=== PATIENT | female | born 1960 | race Caucasian/White ===

== ENCOUNTER 2021-05-16 10:23 | Emergency (ER) | payer BC ==
--- NOTE | 2021-05-16 12:47 | RAD REPORT ---
EXAM DESCRIPTION: RAD - Hand Left 2 View - 05/16/2021 12:41 pm CLINICAL HISTORY: SMASH INJURY COMPARISON: No comparisons FINDINGS: The bones are mildly demineralized. No acute fracture or dislocation evident.
--- NOTE | 2021-05-16 12:54 | ER ---
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 Patient denies pain to the hand at this time, but states it feels like it might be bruised. Coronavirus screen: At this time, the client does not indicate any symptoms associated with coronavirus-19. Ebola Screen: No symptoms or risks identified at this time. Initial Sepsis Screen: Does the patient meet any 2 criteria? No. Patient's initial sepsis screen is negative. Does the patient have a suspected source of infection? No. Patient's initial sepsis screen is negative. Risk Assessment: Do you want to hurt yourself or someone else? Patient reports no desire to harm self or others. Onset of symptoms was May 16, 2021. 11:17 Method Of Arrival: Ambulatory ap3 11:17 Acuity: JEFF 4 ap3 Triage Assessment: 11:20 General: Appears in no apparent distress. Behavior is calm, cooperative, appropriate ap3 for age. Pain: Complains of pain in left hand. 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 Cardiovascular: Patient's skin is warm and dry. Respiratory: Airway is patent Respiratory effort is even, unlabored, Respiratory pattern is regular, symmetrical. Musculoskeletal: Reports pain in left hand. Injury Description: Crush injury sustained to left hand is in file cabinet. Historical: - Allergies: 11:19 No Known Allergies; ap3 - Home Meds: 11:19 None [Active]; ap3 - PMHx: 11:19 polio; ap3 - Immunization history:: Client reports having NOT received the Covid vaccine. Last tetanus immunization: up to date Flu vaccine is not up to date. - Social history:: Smoking status: Patient denies any tobacco usage or history of. Screenin:21 Abuse screen: Denies threats or abuse. Nutritional screening: No deficits noted. ap3 Tuberculosis screening: No symptoms or risk factors identified. Fall Risk None identified. Assessment: 11:25 General: Appears in no apparent distress. comfortable, Behavior is calm, cooperative, jd3 appropriate for age. Pain: Complains of pain in left hand Quality of pain is described as aching. Neuro: Level of Consciousness is awake, alert, obeys commands, Oriented to person, place, time, situation. Cardiovascular: Capillary refill < 3 seconds Patient's skin is warm and dry. Respiratory: Airway is patent Respiratory effort is even, unlabored, Respiratory pattern is regular, symmetrical, Denies cough, shortness of breath. GI: No signs and/or symptoms were reported involving the gastrointestinal system. : No signs and/or symptoms were reported regarding the genitourinary system. EENT: No signs and/or symptoms were reported regarding the EENT system. Derm: Skin is intact, Skin is dry, Skin is normal, Skin temperature is warm Bruising that is dark purple, on dorsal aspect of proximal phalanx of left index finger. Musculoskeletal: Circulation, motion, and sensation intact. Range of motion: intact in all extremities. 12:08 Reassessment: Patient appears in no apparent distress at this time. Patient and/or jd3 family updated on plan of care and expected duration. Pain level reassessed. Patient is alert, oriented x 3, equal unlabored respirations, skin warm/dry/pink. X-rays done. awaiting results. 13:00 Reassessment: Patient appears in no apparent distress at this time. Patient and/or jd3 family updated on plan of care and expected duration. Pain level reassessed. Patient is alert, oriented x 3, equal unlabored respirations, skin warm/dry/pink. reported understanding of discharge instructions. even and steady gait upon discharge. Vital Signs: 11:17 BP 159 / 88; Pulse 84; Resp 16; Temp 98.1; Pulse Ox 100% ; Weight 52.16 kg; Height 5 ap3 ft. 2 in. (157.48 cm); 12:30 Pulse 83; Resp 16 S; Pulse Ox 100% on R/A; jd3 11:17 Body Mass Index 21.03 (52.16 kg, 157.48 cm) ap3 ED Course: 10:27 Patient arrived in ED. mr 10:27 Roger Quezada DO is Private Physician. mr 11:19 Triage completed. ap3 11:21 Arm band placed on left wrist. ap3 11:22 Johnnie Lyn, RN is Primary Nurse. jd3 11:27 Patient has correct armband on for positive identification. Bed in low position. Call jd3 light in reach. Side rails up X 1. Pulse ox on. NIBP on. 11:49 Joan Scott MD is Attending Physician. sp3 12:43 Hand Left 2 View XRAY In Process Unspecified. EDMS 13:00 No provider procedures requiring assistance completed. Patient did not have IV access jd3 during this emergency room visit. Administered Medications: No medications were administered Outcome: 12:53 Discharge ordered by . sp3 13:00 Discharged to home ambulatory. jd3 13:00 Condition: stable 13:00 Discharge instructions given to patient, Instructed on discharge instructions, follow up and referral plans. Demonstrated understanding of instructions, follow-up care. 13:01 Patient left the ED. jd3 Signatures: Dispatcher [employer] EDMD Ean Samreen mr Johnnie Lyn RN RN jd3 Bell Mg RN RN ap3 Joan Scott MD MD sp3
--- NOTE | 2021-05-16 12:54 | EDPHYS ---
Physician Documentation [facility] Name: Bill Bolaños Age: 61 yrs Sex: Female : 1960 Arrival Date: 05/16/2021 Time: 10:27 Bed 28 Private MD: Roger Quezada H ED Physician Joan Scott HPI: 05/16 12:07 This 61 yrs old Female presents to ER via Ambulatory with complaints of Hand Injury. 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 Patient's complaint is primarily in the proximal index finger at the carpal metacarpal joint. Patient does have full range of motion and states that she has some bruising there. No other injuries reported including wrist and proximal left upper extremity. Patient has no reports of numbness or tingling or significant pain distal to the injury site.. Historical: - Allergies: 11:19 No Known Allergies; ap3 - Home Meds: 11:19 None [Active]; ap3 - PMHx: 11:19 polio; ap3 - Immunization history:: Client reports having NOT received the Covid vaccine. Last tetanus immunization: up to date Flu vaccine is not up to date. - Social history:: Smoking status: Patient denies any tobacco usage or history of. ROS: 12:10 Constitutional: Negative for fever, chills, and weight loss, Cardiovascular: Negative sp3 for chest pain, palpitations, and edema, Respiratory: Negative for shortness of breath, cough, wheezing, and pleuritic chest pain, Abdomen/GI: Negative for abdominal pain, nausea, vomiting, diarrhea, and constipation, Back: Negative for injury and pain, Skin: Negative for injury, rash, and discoloration, Neuro: Negative for headache, weakness, numbness, tingling, and seizure. 12:10 All other systems are negative. Exam: 12:10 Constitutional: This is a well developed, well nourished patient who is awake, alert, sp3 and in no acute distress. Skin: Warm, dry with normal turgor. Normal color with no rashes, no lesions, and no evidence of cellulitis. 12:10 Musculoskeletal/extremity: Patient has pain and the base of the first metacarpal carpal joint as well as mild ecchymosis. Full range of motion is present. Capillary refill is normal and neurologic exam is also normal with pain and temperature and sensation. No other proximal injuries noted.. Vital Signs: 11:17 BP 159 / 88; Pulse 84; Resp 16; Temp 98.1; Pulse Ox 100% ; Weight 52.16 kg; Height 5 ap3 ft. 2 in. (157.48 cm); 12:30 Pulse 83; Resp 16 S; Pulse Ox 100% on R/A; jd3 11:17 Body Mass Index 21.03 (52.16 kg, 157.48 cm) ap3 MDM: 11:53 Patient medically screened. sp3 12:12 Data reviewed: vital signs, nurses notes. ED course: View x-ray of the left hand and sp3 discharge if negative.. 05/16 11:51 Order name: Hand Left 2 View XRAY; Complete Time: 12:53 sp3 Administered Medications: No medications were administered Disposition Summary: 05/16/21 12:53 Discharge Ordered Location: Home sp3 Condition: Stable sp3 Diagnosis - Contusion of left hand sp3 Followup: sp3 - With: Private Physician - When: Upon discharge from the Emergency Department - Reason: If symptoms return, Continuance of care Discharge Instructions: - Discharge Summary Sheet sp3 - Hand Contusion sp3 Forms: - Medication Reconciliation Form sp3 - Thank You Letter sp3 - Antibiotic Education sp3 - Prescription Opioid Use sp3 Signatures: Dispatcher [employer] Bell Boyer RN RN ap3 Joan Scott MD MD sp3
[2021-05-16 17:10] VITALS: BP 159/88; TEMP 98.1; O2SAT 100
== END 2021-05-16 13:01 | disposition home or self-care (01) ==
LOC: ER 10:23
DX: S60.222A Contusion of left hand, initial encounter (principal); W23.0XXA Caught, crushed, jammed, or pinched between moving objects, initial encounter; Y92.89 Other specified places as the place of occurrence of the external cause; Y99.8 Other external cause status
CPT/HCPCS: 99283